=== PATIENT | female | born 1965 | race African-American/Black ===

== ENCOUNTER → 2016-09-05 | Outpatient (CLI) | payer OTHER, MEDICAID ==
[~2016-09-05] MED LIST: ASPI-496 PO
== END | disposition home or self-care (01) ==
LOC: CFH 15:56
PROVIDERS: ATTEND Otolaryngology
DX: E04.1 Nontoxic single thyroid nodule (principal)
CPT/HCPCS: 76536

== ENCOUNTER 2017-05-05 10:51 | Inpatient (IN) | payer OTHER, MEDICAID ==
[~2017-05-05] VITALS: Ht 149.9 cm; Wt 83.4 kg
[2017-05-05] MEDS ORDERED: HYDR-3240 PO (11:02)
[2017-05-05] MEDS ORDERED: ALBUTEROL/IPRATROPIUM 2.5MG/0.5MG, 3 ML ONE ×2 (11:27→15:35)
[2017-05-05] MEDS ORDERED: ALBUTEROL/IPRATROPIUM 2.5MG/0.5MG, 3 ML NPPB ONE (11:30)
[2017-05-05] MEDS ORDERED: methylPREDNISolone SOD SUCC 125 MG/2 ML ONE (11:33)
[2017-05-05 11:45] LABS: HEMATOCRIT 55.4 % (34.6-47.8); HEMOGLOBIN 18.7 g/dL (11.7-16.4); WHITE BLOOD COUNT 4.9 x10^3/uL (3.4-10)
[2017-05-05 11:52] LABS: ASPARTATE AMINO TRANSFERASE 41 U/L (15-37); BLOOD UREA NITROGEN 9 mg/dL (7-18)
[2017-05-05 11:57] LABS: IS PT STATUS REG ER OR PRE ER? YES
[2017-05-05] MEDS ORDERED: methylPREDNISolone SOD SUCC 125 MG/2 ML IVP ONE (12:00)
[2017-05-05] MEDS ORDERED: SODIUM CHLORIDE FLUSH 10ML SYR IVF ONE (12:30)
[2017-05-05] MEDS ORDERED: ASPIRIN 81 MG TABLET CHEW PO ONE (12:30)
[2017-05-05] MEDS ORDERED: HEPARIN 5,000 UNITS/ML, 1ML IV ONE (12:30)
[2017-05-05] MEDS ORDERED: OMNIPAQUE 350 MG/ML, 100ML BOTTLE ONE (12:39)
[2017-05-05] MEDS ORDERED: FUROSEMIDE 40 MG/4 ML IV ONE (13:00)
[2017-05-05] MEDS ORDERED: ASPIRIN 325 MG TABLET EC ONE (13:01)
[2017-05-05] MEDS ORDERED: FUROSEMIDE 40 MG/4 ML ONE (13:02)
[2017-05-05] MEDS ORDERED: HEPARIN 5,000 UNITS/ML, 1ML ONE (13:03)
[2017-05-05] MEDS ORDERED: HEPARIN 25,000 UNITS/500ML PMX 500 ML ONE (13:03)
[2017-05-05] MEDS ORDERED: ASPIRIN 81 MG TABLET CHEW ONE (13:11)
[2017-05-05 13:27] LABS: DAU SCREEN DISCLAIMER
[2017-05-05] MEDS: HEPARIN 25,000 UNITS/500ML PMX 500 ML IV PRN (13:41)
[2017-05-05 14:39] VITALS: BP 152/108
[2017-05-05] MEDS ORDERED: POLYETHYLENE GLYCOL 17 GM PACKET PO PRN (15:30)
[2017-05-05] MEDS ORDERED: ONDANSETRON 2MG/ML, 2ML IVPush PRN (15:30)
[2017-05-05] MEDS ORDERED: hydrALAzine 20 MG/ML, 1ML IVPush PRN (15:30)
[2017-05-05] MEDS ORDERED: CAPTOPRIL 25 MG TABLET PO PRN (15:30)
[2017-05-05] MEDS ORDERED: morphine SULFATE 10 MG/ML, 1ML IVPush PRN (15:30)
[2017-05-05] MEDS ORDERED: ZOLPIDEM 5MG TABLET PO PRN (15:30)
[2017-05-05] MEDS ORDERED: BISACODYL 10 MG SUPP PR PRN (15:30)
[2017-05-05] MEDS ORDERED: DOCUSATE 100 MG CAPSULE PO PRN (15:30)
[2017-05-05] MEDS ORDERED: ONDANSETRON ODT 4 MG PO PRN (15:30)
[2017-05-05] MEDS: ALBUTEROL/IPRATROPIUM 2.5MG/0.5MG, 3 ML NPPB SCH ×2 (15:41→19:50)
[2017-05-05] MEDS: NITROGLYCERIN 0.1 MG/HR PATCH TD SCH (16:09)
[2017-05-05] MEDS: methylPREDNISolone SOD SUCC 125 MG/2 ML IVPush SCH ×2 (16:10→22:49)
[2017-05-05] MEDS: NICOTINE 21 MG/24 HR PATCH.TD24 TD SCH (16:10)
[2017-05-05 16:17] LABS: IS PT STATUS REG ER OR PRE ER? NO
[2017-05-05] MEDS ORDERED: PNEUMOCOCCAL 23 VACCINE IM-VACC ONE (17:00)
[2017-05-05] MEDS ORDERED: FLU VACC QS2017-18 (36MOS+) UP/PF 0.5 ML IM-VACC ONE (17:00)
[2017-05-05] MEDS: FUROSEMIDE 20 MG/2 ML IV SCH (18:29)
[2017-05-05 19:48] VITALS: BP 147/96
[2017-05-05] MEDS: ATORVASTATIN 40 MG TABLET PO SCH (22:48)
[2017-05-05] MEDS: FAMOTIDINE 20 MG TABLET PO SCH (22:48)
[2017-05-05] MEDS: LISINOPRIL 10 MG TABLET PO SCH (22:48)
[2017-05-05 22:53] LABS: IS PT STATUS REG ER OR PRE ER? NO
[2017-05-05] MEDS: HEPARIN 5,000 UNITS/ML, 1ML IV PRN (22:59)
[2017-05-06 01:40] VITALS: BP 139/88
[2017-05-06] MEDS: methylPREDNISolone SOD SUCC 125 MG/2 ML IVPush SCH ×4 (05:12→21:30)
[2017-05-06] MEDS: FUROSEMIDE 20 MG/2 ML IV SCH ×2 (05:13→16:35)
[2017-05-06] MEDS: ASPIRIN 325 MG TABLET EC PO SCH (05:19)
[2017-05-06 05:47] LABS: HEMATOCRIT 52.4 % (34.6-47.8); HEMOGLOBIN 17.9 g/dL (11.7-16.4); WHITE BLOOD COUNT 4.8 x10^3/uL (3.4-10)
[2017-05-06 06:08] LABS: BLOOD UREA NITROGEN 11 mg/dL (7-18)
[2017-05-06] MEDS: HEPARIN 5,000 UNITS/ML, 1ML IV PRN ×2 (06:14→12:24)
[2017-05-06] MEDS: ALBUTEROL/IPRATROPIUM 2.5MG/0.5MG, 3 ML NPPB SCH ×4 (07:00→19:08)
[2017-05-06] MEDS: LISINOPRIL 10 MG TABLET PO SCH ×2 (08:29→21:30)
[2017-05-06] MEDS: FAMOTIDINE 20 MG TABLET PO SCH ×2 (08:29→21:30)
[2017-05-06 08:32] VITALS: BP 121/84
[2017-05-06] MEDS: ACETAMINOPHEN 325 MG TABLET PO PRN ×2 (09:44→16:35)
[2017-05-06] MEDS ORDERED: REGADENOSON 0.4 MG/5 ML SYRINGE ONE (12:11)
[2017-05-06 16:00] VITALS: BP 121/75
[2017-05-06] MEDS: NITROGLYCERIN 0.1 MG/HR PATCH TD SCH (16:36)
[2017-05-06] MEDS: NICOTINE 21 MG/24 HR PATCH.TD24 TD SCH (16:36)
[2017-05-06] MEDS ORDERED: LORazepam 1MG TABLET PO PRN (17:00)
[2017-05-06] MEDS: CARVEDILOL 3.125 MG TABLET PO SCH (18:25)
[2017-05-06] MEDS: HEPARIN 25,000 UNITS/500ML PMX 500 ML IV PRN (18:37)
[2017-05-06 19:45] VITALS: BP 123/85
[2017-05-06] MEDS: ATORVASTATIN 40 MG TABLET PO SCH (21:30)
[2017-05-06] MEDS: OXYcodone IR 5MG TABLET PO PRN (21:40)
[2017-05-07 04:00] VITALS: BP 105/75
[2017-05-07] MEDS: FUROSEMIDE 20 MG/2 ML IV SCH ×2 (05:05→16:28)
[2017-05-07] MEDS: methylPREDNISolone SOD SUCC 125 MG/2 ML IVPush SCH ×2 (05:05→09:27)
[2017-05-07] MEDS: CARVEDILOL 3.125 MG TABLET PO SCH ×2 (05:05→16:29)
[2017-05-07] MEDS: ASPIRIN 325 MG TABLET EC PO SCH (05:05)
[2017-05-07 05:21] LABS: HEMATOCRIT 52.7 % (34.6-47.8); HEMOGLOBIN 17.7 g/dL (11.7-16.4); WHITE BLOOD COUNT 10.9 x10^3/uL (3.4-10)
[2017-05-07 05:29] LABS: BLOOD UREA NITROGEN 20 mg/dL (7-18)
[2017-05-07] MEDS: ALBUTEROL/IPRATROPIUM 2.5MG/0.5MG, 3 ML NPPB SCH ×4 (06:48→20:28)
[2017-05-07 07:40] VITALS: BP 118/82
[2017-05-07] MEDS: LISINOPRIL 10 MG TABLET PO SCH ×2 (09:27→20:51)
[2017-05-07] MEDS: FAMOTIDINE 20 MG TABLET PO SCH ×2 (09:27→20:51)
[2017-05-07] MEDS: ACETAMINOPHEN 325 MG TABLET PO PRN (09:35)
[2017-05-07] MEDS ORDERED: GUAIFENESIN/DM 200-20MG, 10ML UDC PO PRN (10:00)
[2017-05-07] MEDS ORDERED: INSULIN ASPART 100 UNITS/ML, PEN SQ-INSULIN SCH ×2 (11:00→16:00)
[2017-05-07] MEDS ORDERED: DEXTROSE 4 GM TAB.CHEW PO PRN (13:00)
[2017-05-07] MEDS ORDERED: GLUCAGON 1 MG IM PRN (13:00)
[2017-05-07] MEDS ORDERED: DEXTROSE 50%, 50ML SYRINGE IVPush PRN (13:00)
[2017-05-07] MEDS ORDERED: INSULIN ASPART 100 UNITS/ML, PEN SQ-INSULIN STA (13:09)
[2017-05-07 14:05] VITALS: BP 129/79
[2017-05-07] MEDS: NICOTINE 21 MG/24 HR PATCH.TD24 TD SCH (16:09)
[2017-05-07] MEDS: NITROGLYCERIN 0.1 MG/HR PATCH TD SCH (16:11)
[2017-05-07] MEDS: INSULIN ASPART 100 UNITS/ML, PEN SQ-INSULIN SCH ×2 (16:27→20:51)
[2017-05-07] MEDS: OXYcodone IR 5MG TABLET PO PRN ×2 (16:28→20:51)
[2017-05-07 19:45] VITALS: BP 126/76
[2017-05-07] MEDS: ATORVASTATIN 40 MG TABLET PO SCH (20:51)
[2017-05-07] MEDS: SODIUM CHLORIDE FLUSH 10ML SYR IVF SCH (20:54)
[2017-05-08] MEDS: OXYcodone IR 5MG TABLET PO PRN ×4 (01:25→21:38)
[2017-05-08 01:49] VITALS: BP 142/95
[2017-05-08 06:03] VITALS: BP 142/94
[2017-05-08 06:08] LABS: BLOOD UREA NITROGEN 28 mg/dL (7-18)
[2017-05-08] MEDS: ASPIRIN 325 MG TABLET EC PO SCH (06:08)
[2017-05-08] MEDS: FUROSEMIDE 20 MG/2 ML IV SCH ×2 (06:08→16:42)
[2017-05-08] MEDS: CARVEDILOL 3.125 MG TABLET PO SCH ×2 (06:08→17:31)
[2017-05-08 07:39] VITALS: BP 137/89
[2017-05-08] MEDS: ALBUTEROL/IPRATROPIUM 2.5MG/0.5MG, 3 ML NPPB SCH ×4 (07:53→19:24)
[2017-05-08] MEDS: FAMOTIDINE 20 MG TABLET PO SCH ×2 (09:26→21:32)
[2017-05-08] MEDS: LISINOPRIL 10 MG TABLET PO SCH ×2 (09:26→21:32)
[2017-05-08] MEDS: INSULIN ASPART 100 UNITS/ML, PEN SQ-INSULIN SCH ×4 (09:26→21:32)
[2017-05-08] MEDS: SODIUM CHLORIDE FLUSH 10ML SYR IVF SCH ×2 (12:23→21:33)
[2017-05-08 15:30] VITALS: BP 123/85
[2017-05-08] MEDS: NITROGLYCERIN 0.1 MG/HR PATCH TD SCH (16:45)
[2017-05-08] MEDS: NICOTINE 21 MG/24 HR PATCH.TD24 TD SCH (16:45)
[2017-05-08 18:48] VITALS: BP 125/81
[2017-05-08] MEDS: ATORVASTATIN 40 MG TABLET PO SCH (21:33)
[2017-05-09 01:59] VITALS: BP 145/88
[2017-05-09] MEDS: OXYcodone IR 5MG TABLET PO PRN ×3 (02:13→16:49)
[2017-05-09 06:35] VITALS: BP 136/90
[2017-05-09] MEDS: FUROSEMIDE 20 MG/2 ML IV SCH ×2 (06:38→16:49)
[2017-05-09] MEDS: CARVEDILOL 3.125 MG TABLET PO SCH ×2 (06:39→16:49)
[2017-05-09] MEDS: ASPIRIN 325 MG TABLET EC PO SCH (06:39)
[2017-05-09 07:11] VITALS: BP 132/90
[2017-05-09] MEDS: ALBUTEROL/IPRATROPIUM 2.5MG/0.5MG, 3 ML NPPB SCH ×4 (08:00→21:00)
[2017-05-09] MEDS: SODIUM CHLORIDE FLUSH 10ML SYR IVF SCH ×2 (08:09→20:14)
[2017-05-09] MEDS: LISINOPRIL 10 MG TABLET PO SCH ×2 (08:09→20:14)
[2017-05-09] MEDS: FAMOTIDINE 20 MG TABLET PO SCH ×2 (08:09→20:14)
[2017-05-09] MEDS: INSULIN ASPART 100 UNITS/ML, PEN SQ-INSULIN SCH ×4 (08:10→20:14)
[2017-05-09 14:01] VITALS: BP 135/79
[2017-05-09] MEDS: NITROGLYCERIN 0.1 MG/HR PATCH TD SCH (16:50)
[2017-05-09] MEDS: NICOTINE 21 MG/24 HR PATCH.TD24 TD SCH (16:50)
[2017-05-09 19:14] VITALS: BP 145/95
[2017-05-09] MEDS: ATORVASTATIN 40 MG TABLET PO SCH (20:14)
[2017-05-09] MEDS: ACETAMINOPHEN 325 MG TABLET PO PRN (21:49)
[2017-05-10 01:55] VITALS: BP 142/93
[2017-05-10] MEDS: ACETAMINOPHEN 325 MG TABLET PO PRN ×2 (01:56→11:49)
[2017-05-10 04:53] LABS: HEMATOCRIT 55.7 % (34.6-47.8); HEMOGLOBIN 18.8 g/dL (11.7-16.4); WHITE BLOOD COUNT 6.1 x10^3/uL (3.4-10)
[2017-05-10 04:55] LABS: BLOOD UREA NITROGEN 25 mg/dL (7-18)
[2017-05-10] MEDS: ASPIRIN 325 MG TABLET EC PO SCH (06:05)
[2017-05-10] MEDS: CARVEDILOL 3.125 MG TABLET PO SCH (06:05)
[2017-05-10] MEDS ORDERED: ATOR40TA78 PO (07:07)
[2017-05-10] MEDS ORDERED: FURO20TA3 PO (07:07)
[2017-05-10] MEDS ORDERED: PRED20TA PO (07:07)
[2017-05-10] MEDS ORDERED: NICO-487 TD (07:07)
[2017-05-10] MEDS ORDERED: CARV3.1212 PO (07:07)
[2017-05-10] MEDS ORDERED: LISI-167 PO (07:07)
[2017-05-10] MEDS ORDERED: FAMO20TA7 PO (07:07)
[2017-05-10] MEDS ORDERED: FUROSEMIDE 20 MG TABLET PO SCH (07:30)
[2017-05-10 08:00] VITALS: BP 114/57
[2017-05-10] MEDS: ALBUTEROL/IPRATROPIUM 2.5MG/0.5MG, 3 ML NPPB SCH (09:00)
[2017-05-10] MEDS: LISINOPRIL 10 MG TABLET PO SCH (10:04)
[2017-05-10] MEDS: FAMOTIDINE 20 MG TABLET PO SCH (10:05)
[2017-05-10] MEDS: INSULIN ASPART 100 UNITS/ML, PEN SQ-INSULIN SCH ×2 (10:05→12:23)
[2017-05-10] MEDS: SODIUM CHLORIDE FLUSH 10ML SYR IVF SCH (11:49)
== END 2017-05-10 14:24 | disposition home or self-care (01) | DRG 291 ==
LOC: ED 13:00 → EDIP 13:01 → ED 13:31 → 5SO 14:20
PROVIDERS: ADMIT Hospitalist; ATTEND Family Medicine
DX: I11.0 Hypertensive heart disease with heart failure (principal); J96.00 Acute respiratory failure, unspecified whether with hypoxia or hypercapnia; J44.1 Chronic obstructive pulmonary disease with (acute) exacerbation; I50.21 Acute systolic (congestive) heart failure; I42.7 Cardiomyopathy due to drug and external agent; F14.90 Cocaine use, unspecified, uncomplicated; F17.200 Nicotine dependence, unspecified, uncomplicated; F41.9 Anxiety disorder, unspecified; M17.0 Bilateral primary osteoarthritis of knee; Z79.899 Other long term (current) drug therapy; Z79.82 Long term (current) use of aspirin
CPT/HCPCS: 36415; 71010; 71275; 78452; 80048; 80053; 80307; 82947; 82962; 83036; 83605; 83735; 83880; 84100; 84439; 84443; 84484; 85025; 85520; 85610; 85730; 90686; 90732; 93005; 93017; 93306; 94640; 96374; 96375; J1644; J1815; J1940; J2785; J7620; Q9967; A9502; C9898; G0479; J2930; J7512